=== PATIENT | female | born 1990 | race Caucasian/White ===

== ENCOUNTER 2020-11-12 14:49 | Inpatient (IN) | payer OTHER ==
[~2020-11-12] VITALS: Ht 165.1 cm; Wt 72.0 kg
[2020-11-12 15:53] LABS: ALBUMIN 4.2 g/dL (3.4-5.0); ANION GAP 6 mmol/L (5-15); CALCIUM 9.3 mg/dL (8.5-10.1); CHLORIDE 105 mmol/L (98-107); CREATININE 0.94 mg/dL (0.55-1.02)
[2020-11-12 15:56] LABS: BASOPHILS % (AUTO) 1 % (0-1); EOSINOPHILS % (AUTO) 2 % (1-7); LYMPHOCYTES % (AUTO) 24 % (22-44); MEAN CORPUSCULAR HEMOGLOBIN 27.2 pg (27.0-34.8); MEAN CORPUSCULAR HGB CONC 32.9 g/dL (32.4-35.8); MEAN PLATELET VOLUME 8.3 fL (7.4-10.4); MONOCYTES % (AUTO) 7 % (2-9); NEUTROPHILS % (AUTO) 66 % (42-75); PLATELET COUNT 291 x10^3/uL (130-400); RED BLOOD COUNT 4.99 x10^6/uL (3.82-5.3); RED CELL DISTRIBUTION WIDTH 20.3 % (9.6-15.2)
[2020-11-12 15:58] LABS: ALKALINE PHOSPHATASE 172 U/L (45-117); BILIRUBIN,TOTAL 2.8 mg/dL (0.2-1.0); TOTAL PROTEIN 8.2 g/dL (6.4-8.2)
[2020-11-12 16:00] LABS: ALANINE AMINOTRANSFERASE 1087 U/L (12-78); MD MORPH REVIEW ONLY
[2020-11-12 16:36] LABS: ANISOCYTOSIS 1+
[2020-11-12 16:37] LABS: <PLATELET ESTIMATE> ADEQUATE; <PLT MORPHOLOGY> NORMAL PLT MORPH
--- NOTE | 2020-11-12 18:59 | NUR ---
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
[2020-11-12] MEDS ORDERED: ONDANSETRON 2MG/ML, 2ML ONE (19:09)
--- NOTE | 2020-11-12 19:21 | NUR ---
PT DENIES PAIN AT THIS TIME, PT STATES FEELING A LITTLE NAUSEAS, PARAMETIC STUDENT AT THE BEDSIDE FOR IV AT THIS TIME
[2020-11-12 19:24] LABS: MICROSCOPIC INDICATED
[2020-11-12] MEDS ORDERED: ONDANSETRON 2MG/ML, 2ML IVPush ONE (19:30)
[2020-11-12] MEDS ORDERED: SODIUM CHLORIDE 0.9% 1,000ML IVBOLUS ONE (19:30)
[2020-11-12] MEDS ORDERED: CHOL10003 PO (19:40)
--- NOTE | 2020-11-12 19:55 | NUR ---
PT TO MRI
--- NOTE | 2020-11-12 20:41 | NUR ---
REPORT GIVEN TO KATIANA COVARRUBIAS
[2020-11-12 22:13] VITALS: BP 118/81
[2020-11-12] MEDS ORDERED: DOCUSATE 100 MG CAPSULE PO PRN (22:30)
[2020-11-12] MEDS ORDERED: MORPHINE SULFATE 4 MG/ML, 1ML IVPush PRN (22:30)
[2020-11-12] MEDS ORDERED: morphine SULFATE 10 MG/ML, 1ML IVPush PRN (22:30)
[2020-11-12] MEDS ORDERED: MELATONIN 5 MG TABLET PO PRN (22:30)
[2020-11-12] MEDS ORDERED: LIDODERM 5% PATCH TD PRN (22:30)
[2020-11-12] MEDS ORDERED: ONDANSETRON 2MG/ML, 2ML IVPush PRN ×2 (22:30)
[2020-11-12] MEDS ORDERED: DROS4TAB PO (23:15)
[2020-11-13 00:44] VITALS: BP 110/62
[2020-11-13 05:44] LABS: BASOPHILS % (AUTO) 1 % (0-1); EOSINOPHILS % (AUTO) 4 % (1-7); LYMPHOCYTES % (AUTO) 35 % (22-44); MEAN CORPUSCULAR HEMOGLOBIN 27.1 pg (27.0-34.8); MEAN CORPUSCULAR HGB CONC 33.2 g/dL (32.4-35.8); MEAN PLATELET VOLUME 8.5 fL (7.4-10.4); MONOCYTES % (AUTO) 8 % (2-9); NEUTROPHILS % (AUTO) 52 % (42-75); PLATELET COUNT 228 x10^3/uL (130-400); RED BLOOD COUNT 4.52 x10^6/uL (3.82-5.3); RED CELL DISTRIBUTION WIDTH 20.4 % (9.6-15.2)
[2020-11-13 05:48] LABS: MD NO
[2020-11-13 05:58] LABS: ALBUMIN 3.4 g/dL (3.4-5.0); CALCIUM 8.5 mg/dL (8.5-10.1); CHLORIDE 110 mmol/L (98-107)
[2020-11-13 06:12] LABS: ALANINE AMINOTRANSFERASE 853 U/L (12-78); ALKALINE PHOSPHATASE 178 U/L (45-117); ANION GAP 8 mmol/L (5-15); BILIRUBIN,TOTAL 3.8 mg/dL (0.2-1.0); CHOL/HDL RATIO 3.2; CHOLESTEROL, TOTAL 136 mg/dL (140-239); CREATININE 0.74 mg/dL (0.55-1.02); HDL CHOL % 31 % (28-40); HDL CHOLESTEROL (DIRECT) 42 mg/dL (40-60); LDL CHOLESTEROL,CALCULATED 77 mg/dL (54-169); LDL/HDL RATIO 1.8 (0.5-3.0); TOTAL PROTEIN 6.8 g/dL (6.4-8.2); TRIGLYCERIDES 83 mg/dL (50-200); VLDL CHOLESTEROL 17 mg/dL (0-25)
[2020-11-13 06:27] LABS: FREE T4 (FREE THYROXINE) 1.17 ng/dL (0.76-1.46)
[2020-11-13 06:50] VITALS: BP 120/74
== END 2020-11-13 13:15 | disposition home or self-care (01) | DRG 446 ==
LOC: ED 20:03 → EDIP 20:41 → 3N 21:24
PROVIDERS: ADMIT Internal Medicine; ATTEND Family Medicine
PROC: 0T9B70Z Drainage of Bladder with Drainage Device, Via Natural or Artificial Opening (ICD-10-PCS; principal; 2020-11-12)
DX: K80.50 Calculus of bile duct without cholangitis or cholecystitis without obstruction (principal)
CPT/HCPCS: 36415; 74181; 76700; 80053; 80061; 80074; 81001; 83690; 84439; 84443; 84703; 85025; 87086; 96361; 96374; 99285; G0378; J2270; J7030